=== PATIENT | female | born 1990 ===

== ENCOUNTER → 2021-12-24 | Day surgery (SDC) | payer OTHER ==
[~2021-12-24] VITALS: Ht 162.6 cm; Wt 86.2 kg
[~2021-12-24] MED LIST: BENADRYL25 MG PO; GABAPENTIN600 MG PO; HUMALOG; HUMALOG SC; IBUPROFEN400 MG PO; LANTUS **100 UNITS/ SC; LEVOTHYROXINE150 MCG PO; VENTOLIN HFA IN18 GM INH; VIT D3 PO
[2021-12-24 08:42] LABS: HCG (URINE) SCREEN NEGATIVE (NEGATIVE)
[2021-12-24 09:14] LABS: BASOPHIL 0.8 % (0-2); HCT 45.3 % (37.0-47.0); HGB 15.8 g/dl (12.5-16.0); LYMPHOCYTE 29.2 % (15-48); MCH 33.4 pg (25.0-31.0); MCHC 34.9 g/dL (32.0-36.0); MCV 95.8 fL (78.0-100.0); MONOCYTE 9.1 % (0-12); MPV 9.1 fL (6.0-9.5); NEUTROPHIL 54.8 % (41-80); NRBC 0; PLT 299 K/uL (150-400); RBC 4.73 M/uL (4.20-5.40); RDW 11.8 % (11.5-14.0); WBC 7.2 K/uL (4.0-10.5)
[2021-12-24 09:30] LABS: ALBUMIN 3.7 g/dL (3.4-5.0); BILIRUBIN - TOTAL 0.3 mg/dL (0.2-1.0); BUN/CREAT RATIO (CALC) 12.1 RATIO; CREATININE 0.58 mg/dL (0.51-0.95); GLOBULIN (CALCULATION) 3.5 g/dL; POTASSIUM 3.9 mmol/L (3.5-5.1); TOTAL PROTEIN 7.2 g/dL (6.4-8.2)
== END | disposition home or self-care (01) ==
LOC: FAS 08:23
PROVIDERS: Oral & Maxillofacial Surgery
DX: K04.7 Periapical abscess without sinus (principal); K02.9 Dental caries, unspecified; E11.40 Type 2 diabetes mellitus with diabetic neuropathy, unspecified; J45.909 Unspecified asthma, uncomplicated; E03.9 Hypothyroidism, unspecified; F41.9 Anxiety disorder, unspecified; F17.200 Nicotine dependence, unspecified, uncomplicated; Z20.822 Contact with and (suspected) exposure to COVID-19; Z79.4 Long term (current) use of insulin; Z79.899 Other long term (current) drug therapy; Z88.8 Allergy status to other drugs, medicaments and biological substances
CPT/HCPCS: D7140; D7210; D7310; 36415; 71045; 80053; 84703; 85025; 93005; J1170; J1885; J2250; J2405; J2704; J3010; J7120; U0002